=== PATIENT | male | born 1940 | race Caucasian/White ===

== ENCOUNTER 2017-06-23 08:27 | Inpatient (IN) | payer MEDICARE, OTHER ==
[~2017-06-23] VITALS: Ht 172.7 cm; Wt 88.8 kg
[2017-06-23] VITALS (10 sets, daily range): BP systolic 93–149; BP diastolic 51–85; PULSE 66–86; TEMP 96.5–97.8
[2017-06-23] MEDS ORDERED: PRILOTC PO (09:14)
[2017-06-23] MEDS ORDERED: ZOCOR 80MG80 MG PO (09:15)
[2017-06-23] MEDS ORDERED: FLOMAX 0.40.4 MG/CAP PO (09:15)
[2017-06-23] MEDS ORDERED: PROSCAR 5MG5 MG PO (09:15)
[2017-06-23] MEDS ORDERED: COUMADIN 22.5 MG/TAB PO ×2 (09:16→14:46)
[2017-06-23] MEDS ORDERED: MAXZIDE-25MG TA1 TAB PO (09:16)
[2017-06-23] MEDS ORDERED: COUMADIN 5MG5 MG/TAB PO (14:45)
[2017-06-24] VITALS (7 sets, daily range): BP systolic 93–138; BP diastolic 51–80; PULSE 63–76; TEMP 97.1–98.4
[2017-06-25 02:12] VITALS: BP 125/71; PULSE 71; TEMP 98.8
[2017-06-25 05:23] VITALS: BP 122/72; PULSE 70; TEMP 98.3
[2017-06-25 10:53] VITALS: BP 133/77; PULSE 89; TEMP 97.9
== END 2017-06-25 13:15 | disposition home or self-care (01) | DRG 713 ==
LOC: SDCO 08:27 → SURG 10:52
PROVIDERS: Urology
PROC: 0VB08ZZ Excision of Prostate, Via Natural or Artificial Opening Endoscopic (ICD-10-PCS; principal; 2017-06-23 10:30)
DX: N40.1 Benign prostatic hyperplasia with lower urinary tract symptoms (principal); N13.8 Other obstructive and reflux uropathy; R35.0 Frequency of micturition; R39.15 Urgency of urination; I10 Essential (primary) hypertension; I48.91 Unspecified atrial fibrillation; N39.43 Post-void dribbling
CPT/HCPCS: J0461; J0690; J2405; J2704; J2765; J3010; J7120

== ENCOUNTER 2020-01-18 07:30 | Outpatient (CLI) | payer MEDICARE, OTHER ==
[2020-01-18] VITALS (8 sets, daily range): BP systolic 121–158; BP diastolic 72–94; PULSE 63–76; TEMP 97.3
[~2020-01-18] VITALS: Ht 172.8 cm; Wt 85.7 kg
[~2020-01-18 07:30] MED LIST: COUMADIN 22.5 MG/TAB PO; COUMADIN 5MG5 MG/TAB PO; FLOMAX 0.40.4 MG/CAP PO; MAXZIDE-25MG TA1 TAB PO; PRILOTC PO; PROSCAR 5MG5 MG PO; ZOCOR 80MG80 MG PO
[2020-01-18 08:36] LABS: HEMATOCRIT 44.2 % (42.0-52.0); HEMOGLOBIN 15.4 g/dl (13.5-18.0); MEAN CELL VOLUME 86 fl (80.0-100.0); MEAN CORPUSCULAR HEMOGLOBIN 30 pg (27.0-31.0); MEAN CORPUSCULAR HGB CONC 35 g/dl (33.0-37.0); PLATELET COUNT 205 K/mm3 (130-400); RED BLOOD COUNT 5.16 M/mm3 (4.20-5.60)
[2020-01-18] MEDS ORDERED: KEPPRA1000 MG PO (08:39)
[2020-01-18 08:42] LABS: CALCIUM 8.5 mg/dL (8.4-10.2); CREATININE, serum 0.88 (0.66-1.25); POTASSIUM 3.5 mmol/L (3.4-5.0)
[2020-01-18 08:43] LABS: INR 2.9 (0.8-3.0); PROTHROMBIN TIME 32.7 SECONDS (9.7-12.8)
--- NOTE | 2020-01-18 10:57 | NUR ---
Report from [facility]na P[employer]. Pt denies pain and needs at this time. VSS
--- NOTE | 2020-01-18 13:42 | NUR ---
INT discontinued intact. Discharge instructions given
--- NOTE | 2020-01-18 13:50 | NUR ---
Ambulated with pt to private car
== END 2020-01-18 13:55 | disposition home or self-care (01) ==
LOC: COL.RAD
PROVIDERS: Internal Medicine Cardiovascular Disease
DX: I44.4 Left anterior fascicular block (principal)
CPT/HCPCS: J2704

== ENCOUNTER 2021-02-12 07:52 | Outpatient (CLI) | payer MEDICARE, OTHER ==
[~2021-02-12] VITALS: Ht 172.8 cm; Wt 84.5 kg
[~2021-02-12 07:52] MED LIST changes: +KEPPRA1000 MG PO
[2021-02-12] MEDS ORDERED: K-DUR20 MEQ PO (08:12)
[2021-02-12] MEDS ORDERED: CRESTOR5 MG PO (08:13)
[2021-02-12 08:26] LABS: HEMATOCRIT 46.7 % (42.0-52.0); HEMOGLOBIN 16.4 g/dl (13.5-18.0); MEAN CELL VOLUME 85 fl (80.0-100.0); MEAN CORPUSCULAR HEMOGLOBIN 30 pg (27.0-31.0); MEAN CORPUSCULAR HGB CONC 35 g/dl (33.0-37.0); MEAN PLATELET VOLUME 10.5 fl (7.4-10.4); PLATELET COUNT 240 K/mm3 (130-400); RED BLOOD COUNT 5.47 M/mm3 (4.20-5.60); REDCELL DISTRIBUTION WIDTH-CV 12.9 % (11.5-14.5)
[2021-02-12] MEDS ORDERED: COUMADIN 3MG3 MG/TAB PO (08:35)
[2021-02-12 08:36] LABS: INR 2.8 (0.8-3.0); PROTHROMBIN TIME 31.7 SECONDS (9.7-12.8)
[2021-02-12 08:39] VITALS: BP 138/87; PULSE 61; TEMP 98.5
[2021-02-12 08:49] LABS: CALCIUM 8.9 mg/dL (8.4-10.2); CREATININE, serum 0.92 mg/dL (0.72-1.25); POTASSIUM 3.6 mmol/L (3.5-4.5)
[2021-02-12 10:00] VITALS: BP 141/80; PULSE 61
[2021-02-12 10:15] VITALS: BP 139/87; PULSE 61
[2021-02-12 10:30] VITALS: BP 150/105; PULSE 64
[2021-02-12 10:45] VITALS: BP 148/81; PULSE 55
[2021-02-12 11:00] VITALS: BP 145/84; PULSE 58
--- NOTE | 2021-02-12 11:10 | NUR ---
DC instructions reviewed with pt and . Both express understanding. He has tolerated PO fluids without issue, denies pain in throat or nausea. He is steady on feet to restroom. INT DC'd with catheter intact. He is assisted out to 's car by wheelchair with belongings.
== END 2021-02-12 11:10 | disposition home or self-care (01) ==
LOC: COL.RAD 07:52
PROVIDERS: Internal Medicine Cardiovascular Disease
DX: I35.0 Nonrheumatic aortic (valve) stenosis (principal)
CPT/HCPCS: J2370; J2704

== ENCOUNTER 2023-11-21 07:20 | Inpatient (IN) | payer MEDICARE, OTHER ==
[~2023-11-21] VITALS: Ht 172.7 cm; Wt 84.5 kg
[~2023-11-21 07:20] MED LIST changes: +COUMADIN 3MG3 MG/TAB PO; +CRESTOR5 MG PO; +K-DUR20 MEQ PO
[2023-11-21 07:51] LABS: BASO % 0.4 % (0.0-2.0); EOS # 0.2 K/mm3 (0.0-0.7); GRAN # 3.9 K/mm3 (1.4-6.5); GRAN % 57.3 % (42.2-75.2); HEMATOCRIT 47.7 % (42.0-52.0); HEMOGLOBIN 16.5 g/dl (13.5-18.0); LYMPH # 2.1 K/mm3 (1.2-3.4); LYMPH % 30.7 % (20.0-51.0); MEAN CELL VOLUME 86 fl (80.0-100.0); MEAN CORPUSCULAR HEMOGLOBIN 30 pg (27-31); MEAN CORPUSCULAR HGB CONC 35 g/dl (33.0-37.0); MEAN PLATELET VOLUME 10.9 fl (7.4-10.4); MONO # 0.6 K/mm3 (0.1-0.6); MONO % 8.3 % (1.7-9.3); PLATELET COUNT 204 K/mm3 (130-400); RED BLOOD COUNT 5.57 M/mm3 (4.20-5.60); REDCELL DISTRIBUTION WIDTH-CV 13.2 % (11.5-14.5)
[2023-11-21 08:07] LABS: INR 2.2 (0.8-3.0); PROTHROMBIN TIME 23.5 SECONDS (9.7-12.8)
[2023-11-21 08:39] LABS: URINE APPEARANCE CLEAR (CLEAR/HAZY); URINE BLOOD 3+ (NEGATIVE); URINE COLOR YELLOW (YELLOW); URINE GLUCOSE NEGATIVE (NEGATIVE); URINE KETONE NEGATIVE (NEGATIVE); URINE NITRATE NEGATIVE (NEGATIVE); URINE PROTEIN(semi-quant) 2+ (NEGATIVE)
[2023-11-21 08:46] LABS: URINE BACTERIA OCCASIONAL /hpf (NONE SEEN); URINE RBC >50 /hpf (0-2)
[2023-11-21 08:48] LABS: COLLECTION METHOD CLEAN CATCH
[2023-11-21 08:51] LABS: ALBUMIN 3.8 g/dL (3.4-4.8); BILIRUBIN,TOTAL 0.8 mg/dL (0.2-1.2); CALCIUM 8.5 mg/dL (8.4-10.2); CREATININE, serum 0.99 mg/dL (0.72-1.25); POTASSIUM 3.8 mEq/L (3.5-4.5); TOTAL PROTEIN 7.3 g/dl (6.2-8.1)
[2023-11-21] MEDS ORDERED: NS 100 ML IV ONE (11:26)
[2023-11-21] MEDS ORDERED: Iohexol 300 - 100 ML VIAL IV ONE (11:26)
[2023-11-21] MEDS ORDERED: Polyethylene Glycol 3350 17 GM PDS PO PRN (12:45)
[2023-11-21] MEDS ORDERED: Docusate Sodium 100 MG CAP PO PRN (12:45)
[2023-11-21] MEDS ORDERED: Acetaminophen 325 MG TAB PO PRN (12:45)
[2023-11-21 13:44] VITALS: BP 143/69; PULSE 80; TEMP 98.1
--- NOTE | 2023-11-21 13:45 | NUR ---
Pt up to floor with at beside, a/o x4, no pain at this time. CBI running with urine clear, rate slowed. Pt reports using CPAP HS and wikfe plans to bring it to room today. Pt reporting 5 loose bowel movements today, pt reports 3 BMs daily is his baseline. SBA to bathroom with steady gait. No needs at this time, will continue to monitor.
[2023-11-21] MEDS ORDERED: PROTONIX20 MG PO (13:58)
[2023-11-21] MEDS ORDERED: ZEBETA 5MG5 MG PO (13:59)
[2023-11-21] MEDS ORDERED: COUMADIN 3MG3 MG/TAB PO (14:00)
[2023-11-21] MEDS ORDERED: NORVASC 5MG5 MG/TAB PO (14:04)
[2023-11-21] MEDS ORDERED: PEPCID40 MG PO (14:05)
--- NOTE | 2023-11-21 15:04 | NUR ---
LINA met with patient and his Adelina ([phone]) who is also his DPOA. Patient lists his son Myles and patrice Estrella as alternate DPOA. Patient shared that he sees Bessie MAZARIEGOS as his PCP and uses [facility] pharmacy. Patient states his only DME is CPAP and hearing aides. Patient states he and live at [facility] and he is active and independent. Patient plans to return to his home at discharge. Discharge plan: Home
[2023-11-21 15:40] VITALS: BP 131/71; PULSE 69; TEMP 98.8
[2023-11-21 17:19] VITALS: BP_SYST 131
[2023-11-21 19:07] VITALS: BP 125/69; PULSE 66; TEMP 98.6
[2023-11-21 20:00] VITALS: BP_SYST 125
[2023-11-21] MEDS ORDERED: Bisoprolol 5 MG TAB PO SCH (21:00)
[2023-11-21] MEDS ORDERED: amLODIPine 5 MG TAB PO SCH (21:00)
[2023-11-21] MEDS ORDERED: Atorvastatin 10 MG TAB PO SCH (21:00)
[2023-11-21] MEDS ORDERED: levETIRAcetam 500 MG TAB PO SCH (21:00)
[2023-11-21] MEDS ORDERED: Famotidine 20 MG TAB PO SCH (21:00)
[2023-11-21 23:20] VITALS: BP 120/70; PULSE 59; TEMP 98.9
[2023-11-22] VITALS (12 sets, daily range): BP systolic 109–151; BP diastolic 60–80; PULSE 52–61; TEMP 97.5–98.2
[2023-11-22 07:02] LABS: BASO % 0.5 % (0.0-2.0); EOS # 0.2 K/mm3 (0.0-0.7); EOS % 1.8 % (0.0-4.0); GRAN # 5.5 K/mm3 (1.4-6.5); GRAN % 62.2 % (42.2-75.2); HEMATOCRIT 44.3 % (42.0-52.0); HEMOGLOBIN 15.6 g/dl (13.5-18.0); LYMPH # 2.1 K/mm3 (1.2-3.4); LYMPH % 23.9 % (20.0-51.0); MEAN CELL VOLUME 86 fl (80.0-100.0); MEAN CORPUSCULAR HEMOGLOBIN 30 pg (27-31); MEAN CORPUSCULAR HGB CONC 35 g/dl (33.0-37.0); MEAN PLATELET VOLUME 11.5 fl (7.4-10.4); MONO % 11.4 % (1.7-9.3); PLATELET COUNT 193 K/mm3 (130-400); RED BLOOD COUNT 5.14 M/mm3 (4.20-5.60); REDCELL DISTRIBUTION WIDTH-CV 13.4 % (11.5-14.5)
--- NOTE | 2023-11-22 07:05 | NUR ---
awake resting in bed, bedside shift report received from TONO Ramos, CBI infusing slowly and urine is clear and very light pink
[2023-11-22 07:06] LABS: INR 2.4 (0.8-3.0); PROTHROMBIN TIME 25.4 SECONDS (9.7-12.8)
[2023-11-22 07:12] LABS: CALCIUM 8.1 mg/dL (8.4-10.2); CREATININE, serum 0.86 mg/dL (0.72-1.25); POTASSIUM 3.5 mEq/L (3.5-4.5)
--- NOTE | 2023-11-22 08:30 | NUR ---
resting in bed visiting with , full assessment completed, see interventions for further info,
[2023-11-22] MEDS ORDERED: Finasteride 5 MG TAB PO SCH (09:00)
--- NOTE | 2023-11-22 09:00 | NUR ---
therapy in to work with patient, ambulated and then to recliner
--- NOTE | 2023-11-22 10:30 | NUR ---
sitting up in recliner visitign with , urine is light yellow and clear
--- NOTE | 2023-11-22 13:15 | NUR ---
patient called and states his catheter had failed, entered room and he states he felt an urge to void and then he had urine from out around the catheter, CBI continues to infuse slowly and catheter is draining clear urine, hygien completed, catheter taped to pateint's leg, called Dr Anders and left him a message to call this nurse, informed patient to call if this occurs again
--- NOTE | 2023-11-22 13:45 | NUR ---
patient again called and stated had urine from around catheter, when CBI rate is increasd fluid does flow freely from catheter tubing, CBI turned off and bladder irrigated and all fluid returned and no clots noted,
--- NOTE | 2023-11-22 14:33 | NUR ---
Dr Anders called this nurse, will be in shortly to see patient, has had no further leaking around catheter, has reddish colored urine in tubing and CBI Is off at this time
--- NOTE | 2023-11-22 15:17 | NUR ---
Dr Anders in to see patient, will discontinue catheter
--- NOTE | 2023-11-22 15:36 | NUR ---
garrido catheter discontinued, instructed to call each time he voids so we can measure and check color, also instructed to call if he feels urge to void and unable, verbalizes understanding
--- NOTE | 2023-11-22 15:38 | NUR ---
ambulated to desk and stated he has voided the first time
--- NOTE | 2023-11-22 16:00 | NUR ---
ambulating in [place]ith independently with at side
--- NOTE | 2023-11-22 18:49 | NUR ---
bedside shift report given to TONO Dykes and PHILLIP Candelario
--- NOTE | 2023-11-22 20:30 | NUR ---
PT RESTING IN BED. SCHEDULED MEDS GIVEN PER eMAR. DENIES PAIN. GROSS HEMATURIA NOTED IN PT'S LAST VOID. CALL LIGHT WITHIN REACH. NO FURTHER CONCERNS AT THIS TIME.
[2023-11-22] MEDS ORDERED: levETIRAcetam 500 MG TAB PO SCH (21:00)
--- NOTE | 2023-11-22 22:32 | NUR ---
PT VOIDED ABOUT 250ML OF DARK YELLOW URINE. NO FURTHER CONCERNS.
[2023-11-23 00:01] VITALS: BP_SYST 111
[2023-11-23 03:24] VITALS: BP 111/62; PULSE 58; TEMP 98.1
[2023-11-23 03:41] VITALS: BP_SYST 111
--- NOTE | 2023-11-23 05:18 | NUR ---
Agree with shift assessment completed by PHILLIP Candelario.
[2023-11-23 05:55] LABS: BASO % 0.5 % (0.0-2.0); EOS # 0.2 K/mm3 (0.0-0.7); EOS % 3.2 % (0.0-4.0); GRAN % 47.7 % (42.2-75.2); HEMATOCRIT 43.8 % (42.0-52.0); HEMOGLOBIN 15.4 g/dl (13.5-18.0); LYMPH # 2.2 K/mm3 (1.2-3.4); MEAN CELL VOLUME 83 fl (80.0-100.0); MEAN CORPUSCULAR HEMOGLOBIN 29 pg (27-31); MEAN CORPUSCULAR HGB CONC 35 g/dl (33.0-37.0); MEAN PLATELET VOLUME 11.5 fl (7.4-10.4); MONO # 0.8 K/mm3 (0.1-0.6); MONO % 13.3 % (1.7-9.3); PLATELET COUNT 182 K/mm3 (130-400); RED BLOOD COUNT 5.27 M/mm3 (4.20-5.60); REDCELL DISTRIBUTION WIDTH-CV 13.2 % (11.5-14.5)
[2023-11-23 06:04] LABS: CALCIUM 8.4 mg/dL (8.4-10.2); CREATININE, serum 0.91 mg/dL (0.72-1.25); POTASSIUM 3.5 mEq/L (3.5-4.5)
[2023-11-23 06:26] LABS: INR 1.9 (0.8-3.0); PROTHROMBIN TIME 20.7 SECONDS (9.7-12.8)
[2023-11-23 08:00] VITALS: BP 138/73; PULSE 55; TEMP 98.3
--- NOTE | 2023-11-23 08:00 | NUR ---
PATIENT IS A&O X4. VSS. NO C/O PAIN OR N/V. TOLERATES DIET WELL. INDEPENDENT FOR ALL CARES AND MOBILITY. IV PATENT AND INTACT IN LAC. PLAN TO BE DC TODAY. CALL LIGHT WITHIN REACH.
[2023-11-23 08:30] VITALS: BP_SYST 138
--- NOTE | 2023-11-23 11:30 | NUR ---
DC TEACHING COMPLETED AND FORMS SIGNED. PATIENT VERBALIZED UNDERSTANDING OF TEACHING AND HAD NO FURTHER QUESTIONS. PATIENT'S IS TAKING HIM HOME. SURGICAL STAFF ESCORTING THEM OUT NOW.
== END 2023-11-23 11:35 | disposition home or self-care (01) | DRG 696 ==
LOC: COL.ER 07:20 → SURG 12:14
PROVIDERS: Personal Emergency Response Attendant; ADMIT Internal Medicine
DX: R31.9 Hematuria, unspecified (principal); N40.0 Benign prostatic hyperplasia without lower urinary tract symptoms; I48.91 Unspecified atrial fibrillation; I10 Essential (primary) hypertension; E78.5 Hyperlipidemia, unspecified; G40.909 Epilepsy, unspecified, not intractable, without status epilepticus; Z79.01 Long term (current) use of anticoagulants
CPT/HCPCS: Q9967